=== PATIENT | female | born 1945 | race Caucasian/White ===

== ENCOUNTER → 2023-08-01 | Outpatient (CLI) | payer MEDICARE ==
--- NOTE | 2023-08-01 13:22 | MR ---
EXAMINATION: MR PANCREAS WITH MRCP WITHOUT AND WITH CONTRAST. DATE OF EXAMINATION: 08/01/2023. COMPARISON: CT abdomen and pelvis on 05/23/2023. MRI on 02/27/2012. INDICATION: Congenital malformation of pancreas. PROCEDURE: Multiplanar, multisequence images of the abdomen were obtained without and with contrast. MRCP imaging was performed. 9.5 mL of Gadavist was given intravenously.. FINDINGS: ABDOMEN: Liver and Biliary system: There is diffuse loss of signal attenuation on the T1 out of phase images when compared to the in phase images compatible with hepatic steatosis. Bile duct is dilated up to 1. 5 cm and bladder. This tapers down to the ampulla. There is some mild intrahepatic biliary ductal dil ation also seen. Adrenal glands: Normal. Kidneys and ureters: Normal. Spleen: Normal. Pancreas: Pancreatic ductal dilation is seen measuring up to 8.2 mm in diameter. This appears unchan ged when compared to the CT examination. This is also similar dating back to the prior MRI study.. Gallbladder: Normal. Lymph nodes, Peritoneum and mesentery: There is no mesenteric or retroperitoneal lymphadenopathy. Gastrointestinal tract: There are no dilated loops of bowel or free intraperitoneal air. . The appe ndix is normal. Aorta/IVC: Aorta normal. No aortic aneurysm or dissection. IVC normal. Abdominal wall: Normal. BONES: There are no osseous destructive lesions.. ADDITIONAL SIGNIFICANT FINDINGS: None. IMPRESSION: 1. Unchanged dilation of the common bile duct and mild intrahepatic biliary ductal dilation as well a s pancreatic ductal dilation dating back to 02/27/2012. 2. Diffuse hepatic steatosis.
== END | disposition home or self-care (01) ==
LOC: RADMRIMAIN 11:01
PROVIDERS: ATTEND Internal Medicine Gastroenterology
DX: K83.8 Other specified diseases of biliary tract (principal); K76.0 Fatty (change of) liver, not elsewhere classified; Q45.3 Other congenital malformations of pancreas and pancreatic duct
CPT/HCPCS: 74183; A9585